=== PATIENT | male | born 1980 | race Caucasian/White ===

== ENCOUNTER 2016-07-21 10:32 | Day surgery (SDC) | payer OTHER ==
[2016-07-21] MEDS ORDERED: LIDOCAINE 1% 5 ML SDV ID PRN (10:45)
[2016-07-21] MEDS ORDERED: LR 1,000 ML IV ONE (10:45)
[2016-07-21] MEDS ORDERED: PROPOFOL/EMULSION 500 MG/50 ML BOTTLE IV ONE (12:35)
[2016-07-21] MEDS ORDERED: LIDOCAINE 2% 5 ML SDV ONE (12:35)
[2016-07-21] MEDS ORDERED: fentaNYL 100 MCG/2 ML INJ ONE (12:35)
--- NOTE | 2016-07-22 00:24 | GPN ---
[f rep st] PROCEDURE NOTE DATE OF PROCEDURE: 07/21/2016 PROCEDURE: Esophagogastroduodenoscopy with biopsy, endoscopic ultrasound. INDICATION: The patient is a 36-year-old male who presents for evaluation of abnormal imaging. He had a recent CT scan which showed a sausage-like pancreas. He presents for further evaluation. CONSENT: Risks, benefits, and alternatives of the procedure were discussed in great detail with the patient. Risks of infection, bleeding, perforation, sedation, and pancreatitis, were discussed. All questions answered. Informed consent was obtained. MEDICATIONS: Propofol. Please see Anesthesiology record for details. ESTIMATED BLOOD LOSS: Insignificant. ESOPHAGOGASTRODUODENOSCOPY EXAMINATION: The proximal, mid, and distal esophagus were normal in appearance. The stomach was entered and closely examined, including retroflexed views of the angularis, cardia, and fundus. The patient was noted to have a small hiatal hernia. The mucosa in the antrum and body was erythematous in a patchy distribution. Biopsies taken. The duodenal bulb was normal in appearance. The mucosa in the second and third portion of duodenum was mildly scalloped, and biopsies taken to rule out celiac sprue. ENDOSCOPIC ULTRASOUND EXAMINATION: The Olympus linear echoendoscope was introduced into the mouth and advanced to second portion of the duodenum. The pancreas was carefully examined from the uncinate process to the tail, where the spleen was seen. In the body of the pancreas, multiple dilated side branches were noted with hyperechoic ductal kee. No mass lesion was seen in the pancreas. The common bile duct was seen and was without stone, stricture, or stenosis. The liver was normal in appearance. No suspicious periportal, peripancreatic, or perigastric lymph nodes were appreciated. Biopsies were taken of the ampulla with the EUS scope for IgG4 staining. IMPRESSION: 1. Biopsies of the ampulla taken for IgG4. 2. Gastritis, status post biopsies. 3. Scalloped mucosa in the duodenum and biopsies taken to rule out celiac sprue. 4. Parenchymal changes in the pancreas. RECOMMENDATIONS: 1. Follow up on biopsy results. 2. Follow up in the office in 6 weeks. /[id number]/MODL MTDD
== END 2016-07-21 17:10 | disposition home or self-care (01) ==
LOC: FSGY 10:32
PROVIDERS: ATTEND Internal Medicine Gastroenterology
PROC: 0DB98ZX Excision of Duodenum, Via Natural or Artificial Opening Endoscopic, Diagnostic (ICD-10-PCS; 2016-07-21)
PROC: 0F9 Hepatobiliary System and Pancreas, Drainage (ICD-10-PCS; 2016-07-21)
PROC: 0DB68ZX Excision of Stomach, Via Natural or Artificial Opening Endoscopic, Diagnostic (ICD-10-PCS; principal; 2016-07-21 12:15)
DX: K29.70 Gastritis, unspecified, without bleeding (principal); K31.89 Other diseases of stomach and duodenum; K86.1 Other chronic pancreatitis; K44.9 Diaphragmatic hernia without obstruction or gangrene; R93.3 Abnormal findings on diagnostic imaging of other parts of digestive tract; R19.7 Diarrhea, unspecified
CPT/HCPCS: J2704; J3010